=== PATIENT | female | born 2000 | race Caucasian/White ===

== ENCOUNTER → 2019-06-25 | Outpatient (CLI) | payer OTHER | LOC: COL.RAD 13:47 | DX: R51 Headache (principal); R47.81 Slurred speech; R53.1 Weakness; Z82.3 Family history of stroke ==

== ENCOUNTER 2019-06-30 10:00 | Emergency (ER) | payer OTHER ==
[~2019-06-30] VITALS: Ht 167.6 cm; Wt 59.1 kg
[2019-06-30 10:06] VITALS: TEMP 98.8
[2019-06-30 11:03] LABS: BASO % 0.6 % (0.0-2.0); EOS # 0.1 (0.0-0.7); EOS % 1.5 % (0-4.0); GRAN % 30.8 % (42.2-75.2); HEMATOCRIT 38.9 % (35.0-45.0); LYMPH # 1.9 (1.2-3.4); LYMPH % 56.7 % (20.0-51.0); MEAN CELL VOLUME 86 fl (80.0-95.0); MEAN CORPUSCULAR HEMOGLOBIN 29 pg (26.0-32.0); MEAN CORPUSCULAR HGB CONC 33 g/dl (33.0-37.0); MEAN PLATELET VOLUME 10.8 fl (7.4-10.4); MONO # 0.3 (0.1-0.6); MONO % 10.1 % (1.7-9.3); PLATELET COUNT 208 K/mm3 (130-400); RED BLOOD COUNT 4.53 M/mm3 (4.10-5.30); REDCELL DISTRIBUTION WIDTH-CV 11.9 % (11.5-14.5)
[2019-06-30 11:22] LABS: MONOSCREEN NEGATIVE
[2019-06-30 11:24] LABS: ALBUMIN 4.6 gm/dL (3.5-5.0); BILIRUBIN,TOTAL 0.5 mg/dL (0.0-1.0); CREATININE, serum 0.49 (0.52-1.25); TOTAL PROTEIN 7.5 gm/dL (6.4-8.2)
[2019-06-30 11:31] LABS: PROTHROMBIN TIME 12.2 SECONDS (9.7-12.8)
[2019-06-30 11:53] LABS: TSH w REFLEX 0.755 uIU/mL (0.465-4.680)
[2019-06-30 12:30] VITALS: BP 111/80; PULSE 95
== END 2019-06-30 12:30 | disposition home or self-care (01) ==
LOC: COL.ER 10:00
PROVIDERS: Emergency Medicine
DX: R51 Headache (principal); R20.2 Paresthesia of skin; Z86.69 Personal history of other diseases of the nervous system and sense organs
CPT/HCPCS: J1200; J2765; J7030

== ENCOUNTER → 2019-07-20 | Outpatient (CLI) | payer OTHER | LOC: COL.RAD 10:48 | DX: R20.0 Anesthesia of skin (principal); R51 Headache; R53.1 Weakness; R47.9 Unspecified speech disturbances | CPT/HCPCS: A9585 ==